=== PATIENT | female | born 1965 | race Hispanic/Latino ===

== ENCOUNTER 2017-12-06 08:22 | Emergency (ER) | payer OTHER ==
[~2017-12-06 08:22] MED LIST: ESOM40CA PO; IBUP-2070 PO; antidepressant
[2017-12-06] MEDS ORDERED: ONDANSETRON HCL MDV 20ML 2 MG/ML VIAL ONE (09:02)
[2017-12-06] MEDS ORDERED: SODIUM CHLORIDE 0.9% 1000ML 1,000 ML IV ONE (09:02)
[2017-12-06] MEDS ORDERED: KETOROLAC TROMETHAMINE 30MG/ML ONE (09:02)
[2017-12-06 09:09] LABS: BASOPHILS % (AUTO) 0.6 % (0.0-5.0); EOSINOPHILS % (AUTO) 2.4 % (0.0-8.0); HEMATOCRIT 39.3 % (36-48); LYMPHOCYTES % (AUTO) 31.5 % (21.0-51.0); MEAN CORPUSCULAR HEMOGLOBIN 30.3 pg (27.0-33.0); MEAN CORPUSCULAR HGB CONC 34.2 g/dL (32.0-36.0); MEAN CORPUSCULAR VOLUME 88.6 fL (79-99); NEUTROPHILS % (AUTO) 58.5 % (40.0-77.0); NUCLEATED RED BLOOD CELLS 0.1 % (0.0-0.19); PLATELET COUNT (AUTO) 287 K/uL (130-400); RED BLOOD CELL COUNT(AUTO) 4.44 MIL/uL (4.00-5.50); RED CELL DISTRIBUTION WIDTH 12.6 % (11.0-15.5); WHITE BLOOD COUNT (AUTO) 7.1 K/uL (4.8-10.8)
[2017-12-06 09:15] LABS: CREATININE 0.9 mg/dL (0.5-1.5); POTASSIUM 3.6 mmol/L (3.5-5.1)
[2017-12-06 09:24] LABS: BILIRUBIN,DIRECT 0.1 mg/dL (0.0-0.3); BILIRUBIN,TOTAL 0.4 mg/dL (0.2-1.0); TOTAL PROTEIN, SERUM 7.5 g/dL (6.0-8.3)
== END 2017-12-06 10:46 | disposition home or self-care (01) ==
LOC: EDH 08:22
DX: K80.50 Calculus of bile duct without cholangitis or cholecystitis without obstruction (principal); Z72.0 Tobacco use
CPT/HCPCS: 36415; 74176; 76705; 80048; 80076; 82550; 83690; 84484; 84702; 85025; 93005; 96361; 96374; 96375; 99285; J1885; J7030

== ENCOUNTER 2021-08-17 17:40 | Emergency (ER) | payer OTHER ==
[~2021-08-17] VITALS: Ht 152.4 cm; Wt 98.0 kg
[2021-08-17] MEDS ORDERED: ALBUTEROL 0.083% 2.5 MG/3 ML INH IH ONE ×2 (18:28→18:46)
[2021-08-17] MEDS ORDERED: IPRATROPIUM/ALBUTEROL SULFATE 3 ML SOLUTION IH ONE ×2 (18:29→18:30)
[2021-08-17] MEDS ORDERED: 0.9%NACL 1000ML 1,000 ML IV ONE (18:30)
[2021-08-17 18:34] LABS: HEMATOCRIT 38.5 % (36-48); MEAN CORPUSCULAR HEMOGLOBIN 30.9 pg (27.0-33.0); MEAN CORPUSCULAR HGB CONC 33.5 g/dL (32.0-36.0); MEAN CORPUSCULAR VOLUME 92.1 fL (79-99); RED BLOOD CELL COUNT(AUTO) 4.18 MIL/uL (4.00-5.50); RED CELL DISTRIBUTION WIDTH 13.2 % (11.0-15.5); WHITE BLOOD COUNT (AUTO) 7.8 K/uL (4.8-10.8)
[2021-08-17 18:46] LABS: CREATININE 0.9 mg/dL (0.5-1.5); POTASSIUM 3.6 mmol/L (3.5-5.1)
[2021-08-17 18:53] LABS: ALBUMIN 2.9 g/dL (3.5-5.0); BILIRUBIN,TOTAL 0.4 mg/dL (0.2-1.0); TOTAL PROTEIN, SERUM 7.7 g/dL (6.0-8.3)
[2021-08-17 19:48] VITALS: BP 103/60
[2021-08-17 19:49] LABS: APPEARANCE,URINE Turbid (CLEAR); BILIRUBIN,URINE Negative (NEGATIVE); COLOR,URINE Yellow (YELLOW); GLUCOSE, URINE (UA) Negative (NEGATIVE); KETONES,URINE Negative (NEGATIVE); LEUKOCYTE ESTERASE ,URINE Moderate (NEGATIVE); NITRATE,URINE Negative (NEGATIVE); OCCULT BLOOD,URINE Small (NEGATIVE); PH,URINE 6.5 (5.0-8.0); PROTEIN,URINE POS 1+ mg/dL (NEGATIVE)
[2021-08-17 19:59] LABS: BACTERIA,URINE Moderate /HPF (None Seen); MUCUS,URINE Many LPF (None Seen); SQUAMOUS EPITHELIAL CELL,UR Many /HPF (0-2)
[2021-08-17] MEDS ORDERED: CEFTRIAXONE 1G VIAL IVP ONE (20:30)
[2021-08-17] MEDS ORDERED: CEFTRIAXONE 1G VIAL ONE (20:31)
[2021-08-17] MEDS ORDERED: AMOX-429 PO (20:35)
[2021-08-17] MEDS ORDERED: ALBU8.5H8 IH (20:35)
[2021-08-17] MEDS ORDERED: ALBUTEROL 0.083% 2.5 MG/3 ML INH IH SCH (22:00)
== END 2021-08-17 20:44 | disposition home or self-care (01) ==
LOC: EDH 17:40
DX: J20.9 Acute bronchitis, unspecified (principal); N39.0 Urinary tract infection, site not specified; E11.9 Type 2 diabetes mellitus without complications; R03.0 Elevated blood-pressure reading, without diagnosis of hypertension; G43.909 Migraine, unspecified, not intractable, without status migrainosus; I25.10 Atherosclerotic heart disease of native coronary artery without angina pectoris; E66.9 Obesity, unspecified; F17.200 Nicotine dependence, unspecified, uncomplicated; Z79.1 Long term (current) use of non-steroidal anti-inflammatories (NSAID); Z79.899 Other long term (current) drug therapy
CPT/HCPCS: 36415; 71045; 80053; 81001; 82948; 84484; 85027; 87077; 87088; 87186; 93005; 94640 ×3; 96361; 96374; 99285; J0696; J7030

== ENCOUNTER 2024-07-29 08:30 | Emergency (ER) | payer BC ==
[~2024-07-29] VITALS: Ht 154.9 cm; Wt 118.8 kg
[~2024-07-29 08:30] MED LIST changes: +ALBU8.5H8 IH; +AMOX-429 PO
--- NOTE | 2024-07-29 08:59 | ERN ---
General Chief Complaint: Skin Rash/Abscess Stated Complaint: RASH Time Seen by MD: 08:35 History of Present Illness Initial Comments 58-year-old female, history of diabetes, history of obesity, presents for total body rash and irritation for about a month now. Patient has patches all over her legs and her upper arms. No systemic signs or symptoms. She was diagnosed with shingles at her PCP and started on an unknown medication for this. She reports her symptoms are getting worse. She has a rash that appears to have small divots/ulcerations in the middle. Allergies: Coded Allergies: No Known Allergies (Unverified Allergy, Unknown, 08/17/21) Home Meds Active Scripts Albuterol Sulfate (Proair Hfa) 8.5 Gm Hfa.aer.ad, 2 INH IH QIDP, #1 INHALER Prov:JOLENE LE 08/17/21 Amoxicillin/Potassium Clav (Augmentin 875-125 Tablet) 1 Each Tablet, 1 TAB PO BID for 10 Days, #20 TAB 0 Refills Prov:JOLENE LE 08/17/21 Reported Medications Esomeprazole Magnesium (Nexium) 40 Mg Capsule.dr, 40 MG PO DAILY, CAP 07/13/16 Ibuprofen (Ibuprofen) 600 Mg Tablet, 600 MG PO Q6H PRN for PAIN LEVEL 1 TO 5, TAB 07/13/16 [antidepressant] No Conflict Check, PRN for anxiety 07/13/16 Past Medical History Past Medical History: Diabetes-Type II, High Cholesterol Medical History Other: MIGRAINES Past Surgical History: Hysterectomy Family History Family History: Negative Social History Social History: Smokers ROS Dictation CONSTITUTIONAL: No chills, no fever, no weakness, no diaphoresis, no malaise. HEAD/FACE: No signs of trauma. EENT: No eye pain, no blurred vision, no tearing, no double vision, no ear pain, no ear discharge, no nose pain, no nasal congestion, no throat pain, no throat swelling, no mouth pain. RESPIRATORY: No cough, no orthopnea, no SOB, no stridor, no wheezing. CARDIOVASCULAR: No chest pain, no edema, no palpitations, no syncope. GASTROINTESTINAL/ABDOMINAL: No abdominal pain, no constipation, no diarrhea, no nausea, no vomiting. GENITOURINARY: No abnormal discharge, no dysuria, no frequent urination, no hematuria. No complaints of pain in the genitals. MUSCULOSKELETAL: No back pain, no gout, no joint pain, no joint swelling, no muscle pain, no muscle stiffness, no neck pain. INTEGUMENTARY: Rash and itching NEUROLOGICAL/PSYCH: No anxiety, not depressed, no emotional problem, no headache, no numbness, no pre-existing deficit, no history of seizures, no tremors, no weakness. HEMATOLOGIC/LYMPHATIC: Not anemic, no history of blood clots, no apparent bleeding, no bruising, glands not swollen. All Systems Negative, Except as Noted. Physical Exam Physical Exam Dictation VITAL SIGNS: Reviewed. GENERAL APPEARANCE: Alert, oriented x3, no acute distress, obese. HEAD AND FACE: Non-traumatic. EYES: PERRL, pink conjunctivas, eyelid no trauma, anterior chamber clear. EARS: Pinnas intact and no signs of trauma or erythema. Ear canals clear and no discharge. TMs no erythema. NOSE: No discharge, no bleeding. OROPHARYNX: Mouth normal, teeth no caries, tongue pink. Pharynx clear, no erythema. Tonsils no exudates, no abscesses noted. Mucous membrane moist. NECK: Supple, non-tender, no thyromegaly, no masses, no JVD, no bruits. BREAST: Deferred. CHEST: No tenderness, no crepitus, no paradoxical movement, no retractions. LUNGS: Clear, well-ventilated, symmetric, no rales, no wheezing, no rhonchi, no stridor, good breath sounds bilaterally. HEART: Regular rate, regular rhythm, no murmur, no gallops. VASCULAR: No peripheral edema. ABDOMEN: Soft, positive bowel sounds, nondistended, no guarding, nontender, no rebound, no masses no hepatomegaly, no splenomegaly, no Haji's sign, no hernias. RECTAL: Deferred. GENITAL: Deferred. NEUROLOGICAL: Normal speech, gross motor function intact, gross sensory function intact. MUSCULOSKELETAL: Neck nontender, full range of motion, back nontender, full range of motion. EXTREMITIES: Nontender, full range of motion. SKIN: Rash. Skin lesions with some papules excoriation. LYMPHATICS: Deferred. MDM CC: Overall body rash Historian: Patient Comorbidities: Obesity, diabetes Vital signs are stable Differential diagnosis includes scabies, bedbugs, immune etiology, other. No labs or imaging indicated It is unclear if this is bedbugs versus scabies. I do not think that this is shingles because it is not follow any sort of common pattern. Patient received dose of IM Solu-Medrol in the ER for itching. We will discharge with prescription for oral ivermectin, and permethrin cream. Patient is agreeable. ED Course Vital Signs Date Time Temp Pulse Resp B/P (MAP) Pulse Ox O2 Delivery O2 Flow Rate FiO2 07/29/24 08:34 97.3 104 16 136/78 97 Room Air DX & DISP Disposition: Discharge Departure Condition: Stable Scripts Acetaminophen with Codeine (Acetaminophen-Cod #3 Tablet) 300 Mg-30 Mg Tablet 1 TAB PO Q6HPRN PRN for pain for 5 Days, #20 TAB 0 Refills Prov: SINAN HWANG DO 07/29/24 Ivermectin (Ivermectin) 3 Mg Tablet 3 MG PO ONCE, #2 TAB Prov: SINAN HWANG DO 07/29/24 Permethrin (Permethrin) 5 % Cream..g. 1 APPL TP ONCE for 1 Day, #60 GM 0 Refills massage into skin from head to soles of feet one time, leave on for 8-14 hours then remove by thorough washing Prov: SINAN HWANG DO 07/29/24 Additional Instructions: Your rash may be related to bed bugs or scabies. It does not appear to be s hingles. You received a dose of intramuscular steroids to reduce inflammation here in the emergency department. I have prescribed 5% permethrin cream. Apply a thin layer to her entire body from the neck down and leave on for 12 hours. After 12 hours washed it off thoroughly. You can repeat this in seven days. I have prescribed ivermectin. Take a single dose today. I have provided to tabdimas, you can take a 2nd dose in seven days. For itching, you can use antihistamines such as [id number] Benadryl or cetirizine. You can also use topical steroid such as hydrocortisone 1% or calamine lotion. Treat every one that is a close contact. Wash all clothing, bedding, and towels used over the past few days and hot water and dry on high heat. Vacuum all your carpets, rubs, and a pulse 3rd for an internal thoroughly. You can take [id number] ibuprofen (600 mg) up to 4 times a day for pain or discomfort. I have also prescribed Tylenol with codeine as needed. Please continue to follow up with your primary doctor. Referrals: TIFFANIE CHOW (PCP) SINAN HWANG DO Jul 29, 2024 08:59
[2024-07-29] MEDS ORDERED: IVER3TAB PO (09:06)
[2024-07-29] MEDS ORDERED: PERM60CR4 TP (09:06)
[2024-07-29] MEDS ORDERED: ACET-2079 PO (09:10)
[2024-07-29] MEDS: Solu-medROL 40MG VIAL IM ONE (09:15)
[2024-07-29 09:29] VITALS: BP 137/74; PULSE 88; RESP 17; TEMP 98; O2SAT 96
--- NOTE | 2024-07-29 09:37 | NUR ---
educated patient however she did not want information , she said she needed to hurry up and leave
== END 2024-07-29 09:39 | disposition home or self-care (01) ==
LOC: EDH 08:30
DX: R21 Rash and other nonspecific skin eruption (principal); E11.9 Type 2 diabetes mellitus without complications; E66.9 Obesity, unspecified; E78.00 Pure hypercholesterolemia, unspecified; F17.200 Nicotine dependence, unspecified, uncomplicated; Z90.710 Acquired absence of both cervix and uterus
CPT/HCPCS: 99284; 96372; J2919